=== PATIENT | male | born 1950 | race Two or more races ===

== ENCOUNTER 2018-07-17 21:50 | Emergency (ER) | payer OTHER ==
[~2018-07-17] VITALS: Ht 175.3 cm; Wt 74.8 kg
[2018-07-17 21:56] VITALS: BP 174/86
[2018-07-17 22:19] LABS: Basophils # (auto) 0 uL; Basophils % (auto) 0.4 % (0.0-2.0); Eosinophils # (auto) 0.1 uL; Eosinophils % (auto) 1.2 % (0.0-7.0); Hematocrit 43.2 % (41.0-53.0); Hemoglobin 14.5 g/dL (13.5-17.5); Lymphocytes # (auto) 3.3 uL; Lymphocytes % (auto) 40.5 % (10.0-50.0); Mean Corpuscular Hemoglobin 32.4 pg (28.0-32.0); Mean Corpuscular Hgb Conc. 33.5 g/dL (32.0-36.0); Mean Corpuscular Volume 96.7 fL (80.0-100.0); Monocytes # (auto) 0.6 uL; Monocytes % (auto) 7.2 % (0.0-12.0); Neutrophils # (auto) 4.1 uL; Neutrophils % (auto) 50.7 % (37.0-80.0); Nucleated Red Blood Cells % 0.2 %; Platelet Count (auto) 225 10^3/uL (140-450); Red Blood Cells 4.47 10^6/uL (4.5-5.90); Red Cell Distribution Width 13.9 % (11.8-14.3); White Blood Cell 8.2 10^3/uL (4.4-10.8)
[2018-07-17 22:35] LABS: INR 0.96 (0.9-1.15); Prothrombin Time 10.3 sec (9.27-12.13)
[2018-07-17 22:38] LABS: Albumin 4.1 g/dL (3.4-5.0); BUN/Creatinine Ratio 19.2; Calcium 8.9 mg/dL (8.5-10.1); Magnesium 2.4 mg/dL (1.6-2.6); Potassium 3.7 mmol/L (3.5-5.1)
[2018-07-17 22:43] LABS: Bilirubin, Total 0.2 mg/dL (0.2-1.0); Total Protein 7.5 g/dL (6.4-8.2)
== END 2018-07-18 02:34 | disposition left against medical advice (07) ==
LOC: ER 22:01
DX: R07.9 Chest pain, unspecified (principal); M79.642 Pain in left hand; Z53.21 Procedure and treatment not carried out due to patient leaving prior to being seen by health care provider
CPT/HCPCS: 36415; 71046; 80053; 83735; 83880; 84443; 84484; 85025; 85610; 85730; 99281; J7030

== ENCOUNTER → 2020-04-19 21:36 | Emergency (ER) | payer OTHER ==
[~2020-04-19 21:36] MED LIST: ASPI325T4 PO; CLOP75TA70 PO; FURO20TA3 PO; FURO40TA4 PO; LATA0.0019 EACHEYE; LEVO-28 PO; LOSA-69 PO; MET25T PO; METF-370 PO; METO-158 PO; POTA10TA51 PO; SIMV-8 PO
== END | disposition left against medical advice (07) ==
LOC: ER 21:36
DX: R07.89 Other chest pain (principal); Z53.21 Procedure and treatment not carried out due to patient leaving prior to being seen by health care provider
CPT/HCPCS: 93005

== ENCOUNTER 2020-07-23 20:21 | Inpatient (IN) | payer OTHER ==
[~2020-07-23] VITALS: Ht 165.1 cm; Wt 83.2 kg
[2020-07-23 21:14] LABS: Basophils # (auto) 0 10 ^3/uL (0-0.2); Basophils % (auto) 0.5 % (0.0-2.0); Eosinophils # (auto) 0.1 10 ^3/uL (0-0.8); Eosinophils % (auto) 1.1 % (0.0-7.0); Hematocrit 40.1 % (41.0-53.0); Hemoglobin 13.9 g/dL (13.5-17.5); Lymphocytes # (auto) 3.4 10 ^3/uL (0.4-5.4); Lymphocytes % (auto) 39.9 % (10.0-50.0); Mean Corpuscular Hemoglobin 33.1 pg (28.0-32.0); Mean Corpuscular Hgb Conc. 34.7 g/dL (32.0-36.0); Mean Corpuscular Volume 95.5 fL (80.0-100.0); Monocytes # (auto) 0.5 10 ^3/uL (0-1.3); Monocytes % (auto) 6.3 % (0.0-12.0); Neutrophils # (auto) 4.4 10 ^3/uL (1.6-8.6); Neutrophils % (auto) 52.2 % (37.0-80.0); Nucleated Red Blood Cells % 0.1 %; Platelet Count (auto) 193 10^3/uL (140-450); Red Cell Distribution Width 13.7 % (11.8-14.3); White Blood Cell 8.5 10^3/uL (4.4-10.8)
[2020-07-23] MEDS ORDERED: ASPirin-EC 325mg tab PO ONE (21:30)
[2020-07-23 21:39] LABS: Albumin 3.9 g/dL (3.4-5.0); Calcium 8.6 mg/dL (8.5-10.1); Magnesium 2.5 mg/dL (1.6-2.6); Potassium 3.8 mmol/L (3.5-5.1)
[2020-07-23 21:46] LABS: Bilirubin, Total 0.2 mg/dL (0.2-1.0); Total Protein 7.3 g/dL (6.4-8.2)
[2020-07-23 22:15] LABS: BUN/Creatinine Ratio 30.1
[2020-07-23 22:46] LABS: INR 0.97 (0.9-1.15); Partial Thromboplastin Time 24.5 sec (23.0-31.2)
[2020-07-24] VITALS (27 sets, daily range): BP systolic 81–127; BP diastolic 47–82
[2020-07-24] MEDS ORDERED: ONDANSETRON HCL 4 MG/2 ML VIAL IV PRN (00:45)
[2020-07-24] MEDS: SODIUM CHLORIDE 0.9% 1,000 ML IV SCH ×2 (00:45→16:16)
[2020-07-24] MEDS ORDERED: ENOXAPARIN SOD 100 MG/1 ML SYRINGE SC ONE (00:45)
[2020-07-24] MEDS ORDERED: NITROGLYCERIN 0.4 MG SL TAB SL PRN (00:45)
[2020-07-24] MEDS ORDERED: DEXTROSE (50%) 50ML SYRG IV PRN (00:45)
[2020-07-24] MEDS: MORPHINE SULF INJ 2 MG/ML SYRINGE 1ML IV PRN ×3 (05:29→20:56)
[2020-07-24] MEDS: ACCU-CHEK COMFORT CURVE STRIP VI SCH ×3 (06:00→18:31)
[2020-07-24] MEDS: InsuLIN REG 1unit/0.01ml Soln (100units/ml) SC SCH ×3 (06:00→18:00)
[2020-07-24 09:28] LABS: Urine Bacteria NONE SEEN /hpf (None Seen); Urine Blood Negative /uL (Negative); Urine Mucus FEW (None Seen); Urine Specific Gravity 1.024 (1.001-1.035); Urine WBC 1 /hpf (0 - 3)
[2020-07-24] MEDS ORDERED: LOSARTAN POTASSIUM 50 MG TAB PO SCH (10:00)
[2020-07-24] MEDS ORDERED: FAMOTIDINE 20 MG TAB PO SCH (10:00)
[2020-07-24] MEDS ORDERED: ASPirin 81 mg TAB PO SCH (10:00)
[2020-07-24] MEDS ORDERED: ENOXAPARIN SOD 80 MG/0.8ML SYRINGE SC SCH (10:00)
[2020-07-24] MEDS ORDERED: ATENOLOL 50 MG TAB PO SCH (10:00)
[2020-07-24] MEDS ORDERED: HEPARIN SODIUM (PORCINE) 5000 UNITS/ML 1ML VIAL ONE (14:05)
[2020-07-24] MEDS ORDERED: fentaNYL CITRATE 100 MCG/2 ML VL ONE (14:05)
[2020-07-24] MEDS ORDERED: VERAPAMIL 2.5MG/ML INJ 2ML VIAL IV ONE (14:05)
[2020-07-24] MEDS ORDERED: ANGIOMAX 250 MG VIAL IV ONE (14:05)
[2020-07-24] MEDS ORDERED: IODIXANOL 320MG/ML 100ML BTL IV ONE (14:06)
[2020-07-24] MEDS ORDERED: MIDAZOLAM HCL 1MG/1ML-2 ML VIAL ONE (14:06)
[2020-07-24] MEDS ORDERED: SODIUM CHL 0.9% 0 ML ONE (14:06)
[2020-07-24] MEDS ORDERED: LIDOCAINE 2%HCL (LOCAL ANESTH.) INJ 20ML MDV ONE (14:06)
[2020-07-24] MEDS ORDERED: guaiFENesin-DM 100/10mg/5ml SYR PO PRN (17:00)
[2020-07-24] MEDS ORDERED: NOREPINEPHRINE 8 MG/250ML KIT 250 ML IV SCH (17:00)
[2020-07-24] MEDS ORDERED: ALBUTEROL SULF 2.5 MG/0.5ML(0.5%) NEB SOLN NEB PRN (17:00)
[2020-07-24] MEDS ORDERED: ATORVASTATIN 20 MG TAB PO SCH (22:00)
== END 2020-07-24 21:10 | disposition short-term general hospital (02) | DRG 280 ==
LOC: ER 20:21 → EDBD 20:21 → TELE 20:22 → DOU IN ICU 07-24 03:57
PROVIDERS: ADMIT Nurse Practitioner; ATTEND Internal Medicine
PROC: 4A023N7 Measurement of Cardiac Sampling and Pressure, Left Heart, Percutaneous Approach (ICD-10-PCS; principal; 2020-07-24)
PROC: B2111ZZ Fluoroscopy of Multiple Coronary Arteries using Low Osmolar Contrast (ICD-10-PCS; 2020-07-24)
DX: I21.4 Non-ST elevation (NSTEMI) myocardial infarction (principal); I50.21 Acute systolic (congestive) heart failure; J96.01 Acute respiratory failure with hypoxia; I35.0 Nonrheumatic aortic (valve) stenosis; E11.9 Type 2 diabetes mellitus without complications; E78.5 Hyperlipidemia, unspecified; Z20.822 Contact with and (suspected) exposure to COVID-19; Z88.0 Allergy status to penicillin; I48.91 Unspecified atrial fibrillation; I11.0 Hypertensive heart disease with heart failure
CPT/HCPCS: 36415; 71045; 80053; 81001; 82962; 83735; 83880; 84484; 85025; 85610; 85730; 87081; 87426; 93005; 93306; 93458; 96360; 99152; G0378; J2250; Q9967

== ENCOUNTER 2020-08-01 19:15 | Inpatient (IN) | payer OTHER ==
[~2020-08-01] VITALS: Ht 175.3 cm; Wt 80.3 kg
[2020-08-01 21:16] LABS: Basophils # (auto) 0 10 ^3/uL (0-0.2); Basophils % (auto) 0.2 % (0.0-2.0); Eosinophils # (auto) 0.1 10 ^3/uL (0-0.8); Eosinophils % (auto) 0.3 % (0.0-7.0); Hematocrit 32.3 % (41.0-53.0); Lymphocytes # (auto) 2.5 10 ^3/uL (0.4-5.4); Lymphocytes % (auto) 13.8 % (10.0-50.0); Mean Corpuscular Hemoglobin 32.2 pg (28.0-32.0); Mean Corpuscular Volume 94.9 fL (80.0-100.0); Monocytes # (auto) 1.8 10 ^3/uL (0-1.3); Monocytes % (auto) 9.6 % (0.0-12.0); Neutrophils # (auto) 13.8 10 ^3/uL (1.6-8.6); Neutrophils % (auto) 76.1 % (37.0-80.0); Nucleated Red Blood Cells % 0.1 %; Platelet Count (auto) 161 10^3/uL (140-450); Red Cell Distribution Width 13.5 % (11.8-14.3); White Blood Cell 18.2 10^3/uL (4.4-10.8)
[2020-08-01 21:35] LABS: Albumin 2.7 g/dL (3.4-5.0); BUN/Creatinine Ratio 28.9; Calcium 7.7 mg/dL (8.5-10.1); Magnesium 2.2 mg/dL (1.6-2.6); Potassium 3.9 mmol/L (3.5-5.1)
[2020-08-01 21:41] LABS: Total Protein 6.3 g/dL (6.4-8.2)
[2020-08-01 21:43] LABS: INR 1.15 (0.9-1.15)
[2020-08-01 23:10] LABS: Urine Bacteria FEW /hpf (None Seen); Urine Blood Negative /uL (Negative); Urine Hyaline Cast FEW /lpf (0 - 2); Urine Mucus FEW (None Seen); Urine Specific Gravity 1.021 (1.001-1.035); Urine WBC 8 /hpf (0 - 3)
[2020-08-02] MEDS ORDERED: IOHEXOL 350 MG/ML 100ML IJ ONE (00:41)
[2020-08-02] MEDS ORDERED: ASPirin 325 MG TAB PO ONE (01:15)
[2020-08-02] MEDS ORDERED: cefTRIAXone 1GM/50ML D5W 50 ML IV ONE (01:30)
[2020-08-02] MEDS ORDERED: AZITHROMYCIN 500MG/ 250ML 250 ML IV ONE (01:30)
[2020-08-02] MEDS ORDERED: DOCUSATE SOD 100 MG CAP PO PRN (05:30)
[2020-08-02] MEDS ORDERED: HYDROcodone-ACET 5/325MG TAB PO PRN (05:30)
[2020-08-02] MEDS ORDERED: NITROGLYCERIN 0.4 MG SL TAB SL PRN (05:30)
[2020-08-02] MEDS ORDERED: MORPHINE SULF INJ 2 MG/ML SYRINGE 1ML IV PRN (05:30)
[2020-08-02] MEDS ORDERED: ONDANSETRON HCL 4 MG/2 ML VIAL IV PRN (05:30)
[2020-08-02] MEDS ORDERED: DEXTROSE (50%) 50ML SYRG IV PRN (05:30)
[2020-08-02] MEDS ORDERED: VANCOMYCIN PER PHARMACY 0 MG IV SCH (05:30)
[2020-08-02] MEDS ORDERED: ACETAMINOPHEN 325 MG TAB PO PRN (05:30)
[2020-08-02] MEDS ORDERED: MORPHINE SULFATE 4 MG/ML SYR/VIAL IV PRN (05:30)
[2020-08-02] MEDS ORDERED: ALBUMIN 25% 50 ML IV ONE (05:45)
[2020-08-02] MEDS: SODIUM CHLOR 0.9% PF (SALINE LOCK) 10ML VIAL/SYR IV SCH ×3 (06:08→22:00)
[2020-08-02] MEDS ORDERED: VANCOMYCIN 1GM/250ML 250 ML IV ONE (06:15)
[2020-08-02] MEDS: InsuLIN REG 1unit/0.01ml Soln (100units/ml) SC SCH ×3 (07:56→17:10)
[2020-08-02] MEDS: ACCU-CHEK COMFORT CURVE STRIP VI SCH ×4 (07:57→22:00)
[2020-08-02 08:37] LABS: Basophils # (auto) 0.1 10 ^3/uL (0-0.2); Basophils % (auto) 0.3 % (0.0-2.0); Eosinophils # (auto) 0 10 ^3/uL (0-0.8); Eosinophils % (auto) 0.2 % (0.0-7.0); Hematocrit 31.8 % (41.0-53.0); Hemoglobin 10.8 g/dL (13.5-17.5); Lymphocytes # (auto) 2.7 10 ^3/uL (0.4-5.4); Lymphocytes % (auto) 14.8 % (10.0-50.0); Mean Corpuscular Hemoglobin 32.2 pg (28.0-32.0); Mean Corpuscular Hgb Conc. 33.9 g/dL (32.0-36.0); Monocytes # (auto) 1.7 10 ^3/uL (0-1.3); Monocytes % (auto) 9.2 % (0.0-12.0); Neutrophils # (auto) 13.7 10 ^3/uL (1.6-8.6); Neutrophils % (auto) 75.5 % (37.0-80.0); Platelet Count (auto) 168 10^3/uL (140-450); Red Blood Cells 3.35 10^6/uL (4.5-5.90); Red Cell Distribution Width 13.4 % (11.8-14.3); White Blood Cell 18.1 10^3/uL (4.4-10.8)
[2020-08-02 08:50] LABS: Calcium 8.3 mg/dL (8.5-10.1); Potassium 3.8 mmol/L (3.5-5.1)
[2020-08-02 08:53] LABS: BUN/Creatinine Ratio 25.7; Bilirubin, Total 1.1 mg/dL (0.2-1.0); Total Protein 6.3 g/dL (6.4-8.2)
[2020-08-02 09:00] VITALS: BP 122/70
[2020-08-02] MEDS ORDERED: ZINC SULFATE 220mg CAP or TAB PO SCH (10:00)
[2020-08-02] MEDS ORDERED: ASCORBIC ACID 500 MG TAB PO SCH (10:00)
[2020-08-02] MEDS: ASPirin 81 mg TAB PO SCH (11:50)
[2020-08-02] MEDS: FAMOTIDINE (10MG/ML) 2ML VL IV SCH ×2 (11:50→22:40)
[2020-08-02] MEDS: MULTIPLE VITAMIN TAB PO SCH (11:51)
[2020-08-02] MEDS: HEPARIN SODIUM (PORCINE) 5000 UNITS/ML 1ML VIAL SC SCH ×2 (11:53→23:01)
[2020-08-02 12:04] VITALS: BP 122/70
[2020-08-02 12:46] VITALS: BP 105/68
[2020-08-02] MEDS ORDERED: SOD CHL 0.45% 1,000 ML IV ONE (14:15)
[2020-08-02] MEDS ORDERED: LEVO-28 PO (14:43)
[2020-08-02] MEDS ORDERED: METO-158 PO (14:43)
[2020-08-02] MEDS ORDERED: SIMV-8 PO (14:43)
[2020-08-02] MEDS ORDERED: ASPI325T4 PO (14:43)
[2020-08-02] MEDS ORDERED: FURO20TA3 PO (14:43)
[2020-08-02] MEDS ORDERED: LATA0.0019 EACHEYE (14:43)
[2020-08-02] MEDS ORDERED: CLOP75TA70 PO (14:43)
[2020-08-02] MEDS ORDERED: LOSA-69 PO (14:43)
[2020-08-02] MEDS ORDERED: METF-370 PO (14:43)
[2020-08-02] MEDS: CLOPIDOGREL BISULFATE 75 MG TAB PO SCH (16:48)
[2020-08-02 17:00] VITALS: BP 114/68
[2020-08-02 22:00] VITALS: BP 111/72
[2020-08-02] MEDS ORDERED: InsuLIN REG 1unit/0.01ml Soln (100units/ml) SC SCH (22:00)
[2020-08-02] MEDS ORDERED: ATORVASTATIN 20 MG TAB PO SCH (22:00)
[2020-08-02] MEDS ORDERED: HEPARIN SODIUM (PORCINE) 5000 UNITS/ML 1ML VIAL ONE (22:53)
[2020-08-03] MEDS ORDERED: VANCOMYCIN 1GM/250ML 250 ML IV SCH
[2020-08-03 05:00] VITALS: BP 121/72
[2020-08-03] MEDS: SODIUM CHLOR 0.9% PF (SALINE LOCK) 10ML VIAL/SYR IV SCH ×2 (05:28→14:32)
[2020-08-03] MEDS: InsuLIN REG 1unit/0.01ml Soln (100units/ml) SC SCH ×2 (05:29→11:51)
[2020-08-03] MEDS: ACCU-CHEK COMFORT CURVE STRIP VI SCH ×2 (05:29→11:49)
[2020-08-03 06:34] LABS: Basophils # (auto) 0 10 ^3/uL (0-0.2); Basophils % (auto) 0.2 % (0.0-2.0); Eosinophils # (auto) 0.1 10 ^3/uL (0-0.8); Eosinophils % (auto) 0.3 % (0.0-7.0); Hematocrit 32.1 % (41.0-53.0); Lymphocytes # (auto) 2.5 10 ^3/uL (0.4-5.4); Lymphocytes % (auto) 14.5 % (10.0-50.0); Mean Corpuscular Hemoglobin 32.6 pg (28.0-32.0); Mean Corpuscular Hgb Conc. 34.5 g/dL (32.0-36.0); Mean Corpuscular Volume 94.7 fL (80.0-100.0); Monocytes # (auto) 1.4 10 ^3/uL (0-1.3); Neutrophils # (auto) 13.2 10 ^3/uL (1.6-8.6); Nucleated Red Blood Cells % 0.1 %; Platelet Count (auto) 198 10^3/uL (140-450); Red Blood Cells 3.39 10^6/uL (4.5-5.90); Red Cell Distribution Width 13.1 % (11.8-14.3); White Blood Cell 17.1 10^3/uL (4.4-10.8)
[2020-08-03 06:59] LABS: Potassium 3.8 mmol/L (3.5-5.1)
[2020-08-03 07:23] LABS: Albumin 2.8 g/dL (3.4-5.0); BUN/Creatinine Ratio 19.2; Calcium 8.4 mg/dL (8.5-10.1); Total Protein 6.2 g/dL (6.4-8.2)
[2020-08-03 09:00] VITALS: BP 101/61
[2020-08-03] MEDS: ASPirin 81 mg TAB PO SCH (09:50)
[2020-08-03] MEDS: CLOPIDOGREL BISULFATE 75 MG TAB PO SCH (09:50)
[2020-08-03] MEDS: HEPARIN SODIUM (PORCINE) 5000 UNITS/ML 1ML VIAL SC SCH (09:51)
[2020-08-03] MEDS: FAMOTIDINE (10MG/ML) 2ML VL IV SCH (09:53)
[2020-08-03] MEDS: MULTIPLE VITAMIN TAB PO SCH (09:53)
[2020-08-03] MEDS ORDERED: levoFLOXacin 500MG 100 ML IV SCH (10:00)
[2020-08-03 12:00] VITALS: BP 101/61
[2020-08-03 13:00] VITALS: BP 95/59
[2020-08-03 14:00] VITALS: BP 101/64
== END 2020-08-03 14:44 | disposition home or self-care (01) | DRG 312 ==
LOC: ER 19:15 → EDBD 19:15 → TELE 08-02 05:21 → TELE-EAST 08-02 08:51
PROVIDERS: ADMIT Nurse Practitioner Family; ATTEND Hospitalist
DX: I95.2 Hypotension due to drugs (principal); E87.1 Hypo-osmolality and hyponatremia; E44.0 Moderate protein-calorie malnutrition; E11.65 Type 2 diabetes mellitus with hyperglycemia; E88.09 Other disorders of plasma-protein metabolism, not elsewhere classified; Z20.822 Contact with and (suspected) exposure to COVID-19; E11.22 Type 2 diabetes mellitus with diabetic chronic kidney disease; E78.00 Pure hypercholesterolemia, unspecified; I12.9 Hypertensive chronic kidney disease with stage 1 through stage 4 chronic kidney disease, or unspecified chronic kidney disease; I25.10 Atherosclerotic heart disease of native coronary artery without angina pectoris; I70.0 Atherosclerosis of aorta; K76.0 Fatty (change of) liver, not elsewhere classified; E78.5 Hyperlipidemia, unspecified; I25.5 Ischemic cardiomyopathy; I48.91 Unspecified atrial fibrillation; T46.5X5A Adverse effect of other antihypertensive drugs, initial encounter; N18.9 Chronic kidney disease, unspecified; I25.2 Old myocardial infarction; Z79.02 Long term (current) use of antithrombotics/antiplatelets; Z95.2 Presence of prosthetic heart valve; Z88.0 Allergy status to penicillin; Z98.52 Vasectomy status
CPT/HCPCS: 36415; 71045; 71275; 80053; 80061; 81001; 82962; 83036; 83605; 83735; 83880; 84484; 85025; 85610; 87040; 87081; 87426; 93005; 93306; 96365; 96367; 96368; G0378; J0696; J1815; J1956; J3490

== ENCOUNTER 2020-09-11 21:42 | Inpatient (IN) | payer OTHER ==
[~2020-09-11] VITALS: Ht 175.3 cm; Wt 85.4 kg
[~2020-09-11 21:42] MED LIST changes: -FURO20TA3 PO; -FURO40TA4 PO; -LOSA-69 PO; -MET25T PO; -METO-158 PO; -POTA10TA51 PO
[2020-09-11 22:15] LABS: Basophils # (auto) 0 10 ^3/uL (0-0.2); Basophils % (auto) 0.6 % (0.0-2.0); Eosinophils # (auto) 0.1 10 ^3/uL (0-0.8); Eosinophils % (auto) 1.2 % (0.0-7.0); Hematocrit 39.4 % (41.0-53.0); Hemoglobin 13.7 g/dL (13.5-17.5); Lymphocytes # (auto) 3.1 10 ^3/uL (0.4-5.4); Lymphocytes % (auto) 43.2 % (10.0-50.0); Mean Corpuscular Hemoglobin 32.9 pg (28.0-32.0); Mean Corpuscular Hgb Conc. 34.8 g/dL (32.0-36.0); Mean Corpuscular Volume 94.7 fL (80.0-100.0); Monocytes # (auto) 0.7 10 ^3/uL (0-1.3); Monocytes % (auto) 10.1 % (0.0-12.0); Neutrophils # (auto) 3.2 10 ^3/uL (1.6-8.6); Neutrophils % (auto) 44.9 % (37.0-80.0); Nucleated Red Blood Cells % 0.2 %; Red Blood Cells 4.16 10^6/uL (4.5-5.90); Red Cell Distribution Width 14.1 % (11.8-14.3); White Blood Cell 7.1 10^3/uL (4.4-10.8)
[2020-09-11 22:29] LABS: Albumin 3.5 g/dL (3.4-5.0); Calcium 8.8 mg/dL (8.5-10.1); Potassium 3.9 mmol/L (3.5-5.1)
[2020-09-11 22:31] LABS: BUN/Creatinine Ratio 18.6
[2020-09-11 22:36] LABS: Bilirubin, Total 0.2 mg/dL (0.2-1.0)
[2020-09-11 22:45] LABS: INR 0.97 (0.9-1.15); Partial Thromboplastin Time 23.2 sec (23.0-31.2)
[2020-09-12] MEDS ORDERED: SODIUM CHLORIDE IV ONE (01:00)
[2020-09-12] MEDS ORDERED: SODIUM BICARB IV ONE (01:00)
[2020-09-12] MEDS ORDERED: SODIUM BICARBONATE 8.4% INJ 50ML SYRINGE ONE (01:07)
[2020-09-12] MEDS ORDERED: SODIUM CHLORIDE 0.9% 1,000 ML IV ONE (01:30)
[2020-09-12] MEDS ORDERED: NITROGLYCERIN 0.4 MG SL TAB SL PRN (05:30)
[2020-09-12] MEDS ORDERED: ONDANSETRON HCL 4 MG/2 ML VIAL IV PRN (05:30)
[2020-09-12] MEDS ORDERED: ENOXAPARIN SOD 100 MG/1 ML SYRINGE SC ONE (05:30)
[2020-09-12] MEDS ORDERED: MORPHINE SULFATE INJECTION 2 MG/ML SYRG IV PRN (05:30)
[2020-09-12] MEDS ORDERED: DEXTROSE (50%) 50ML SYRG IV PRN (05:30)
[2020-09-12] MEDS: ACCU-CHEK COMFORT CURVE STRIP VI SCH ×3 (06:00→18:11)
[2020-09-12] MEDS: InsuLIN REG 1unit/0.01ml Soln (100units/ml) SC SCH ×3 (06:00→18:12)
[2020-09-12] MEDS: SODIUM CHLORIDE 0.9% 1,000 ML IV SCH ×2 (06:23→18:40)
[2020-09-12 09:03] VITALS: BP 145/85
[2020-09-12] MEDS: CLOPIDOGREL BISULFATE 75 MG TAB PO SCH (09:25)
[2020-09-12] MEDS: ASPirin 81 mg TAB PO SCH (09:25)
[2020-09-12] MEDS: FAMOTIDINE 20 MG TAB PO SCH ×2 (09:25→21:38)
[2020-09-12 13:00] VITALS: BP 137/97
[2020-09-12] MEDS: METOPROLOL SUCCINATE XL 50 MG TAB PO SCH (16:31)
[2020-09-12 17:04] VITALS: BP 126/84
[2020-09-12] MEDS: ENOXAPARIN SOD 80 MG/0.8ML SYRINGE SC SCH (21:39)
[2020-09-12 22:00] VITALS: BP_SYST 129; BP_SYST 98; BP_DIAS 52; BP_DIAS 77
[2020-09-12] MEDS ORDERED: ATORVASTATIN 20 MG TAB PO SCH (22:00)
[2020-09-13] MEDS: ACCU-CHEK COMFORT CURVE STRIP VI SCH ×4 (00:05→17:40)
[2020-09-13 05:00] VITALS: BP 134/89
[2020-09-13] MEDS: InsuLIN REG 1unit/0.01ml Soln (100units/ml) SC SCH ×4 (06:00→17:40)
[2020-09-13 06:47] LABS: Basophils # (auto) 0.1 10 ^3/uL (0-0.2); Basophils % (auto) 0.7 % (0.0-2.0); Eosinophils # (auto) 0.1 10 ^3/uL (0-0.8); Eosinophils % (auto) 1.3 % (0.0-7.0); Hematocrit 37.4 % (41.0-53.0); Hemoglobin 12.9 g/dL (13.5-17.5); Lymphocytes # (auto) 2.4 10 ^3/uL (0.4-5.4); Lymphocytes % (auto) 29.2 % (10.0-50.0); Mean Corpuscular Hemoglobin 32.6 pg (28.0-32.0); Mean Corpuscular Hgb Conc. 34.6 g/dL (32.0-36.0); Mean Corpuscular Volume 94.2 fL (80.0-100.0); Monocytes # (auto) 0.6 10 ^3/uL (0-1.3); Monocytes % (auto) 6.9 % (0.0-12.0); Neutrophils % (auto) 61.9 % (37.0-80.0); Nucleated Red Blood Cells % 0.1 %; Red Blood Cells 3.97 10^6/uL (4.5-5.90); Red Cell Distribution Width 14.2 % (11.8-14.3); White Blood Cell 8.1 10^3/uL (4.4-10.8)
[2020-09-13 07:01] LABS: Albumin 3.1 g/dL (3.4-5.0); Calcium 8.6 mg/dL (8.5-10.1); Potassium 4.1 mmol/L (3.5-5.1)
[2020-09-13 07:05] LABS: BUN/Creatinine Ratio 15.1; Bilirubin, Total 0.7 mg/dL (0.2-1.0); Total Protein 6.3 g/dL (6.4-8.2)
[2020-09-13] MEDS: SODIUM CHLORIDE 0.9% 1,000 ML IV SCH ×2 (07:30→08:10)
[2020-09-13 09:00] VITALS: BP 142/78
[2020-09-13] MEDS: CLOPIDOGREL BISULFATE 75 MG TAB PO SCH (10:35)
[2020-09-13] MEDS: FAMOTIDINE 20 MG TAB PO SCH (10:37)
[2020-09-13] MEDS: ASPirin 81 mg TAB PO SCH (10:38)
[2020-09-13] MEDS: METOPROLOL SUCCINATE XL 50 MG TAB PO SCH (10:38)
[2020-09-13] MEDS: ENOXAPARIN SOD 80 MG/0.8ML SYRINGE SC SCH (10:39)
[2020-09-13 13:00] VITALS: BP 126/84
[2020-09-13 17:00] VITALS: BP 147/87
== END 2020-09-13 18:15 | disposition home or self-care (01) | DRG 281 ==
LOC: ER 21:51 → TELE 09-12 05:30 → TELE-EAST 09-12 09:10
PROVIDERS: ADMIT Nurse Practitioner; ATTEND Internal Medicine
DX: I21.4 Non-ST elevation (NSTEMI) myocardial infarction (principal); I47.1 Supraventricular tachycardia; E11.9 Type 2 diabetes mellitus without complications; E78.5 Hyperlipidemia, unspecified; I11.0 Hypertensive heart disease with heart failure; Z20.822 Contact with and (suspected) exposure to COVID-19; I50.9 Heart failure, unspecified; Z83.3 Family history of diabetes mellitus; Z95.2 Presence of prosthetic heart valve; Z88.0 Allergy status to penicillin
CPT/HCPCS: 36415; 71045; 80053; 82962; 83880; 84484; 85025; 85610; 85730; 87081; 87426; 93005; 93306; 96360; 96361; 96372; 99291; G0378; J1815

== ENCOUNTER 2020-11-20 16:51 | Inpatient (IN) | payer OTHER ==
[~2020-11-20] VITALS: Ht 175.3 cm; Wt 79.4 kg
[2020-11-20] MEDS ORDERED: ADENOSINE 6 MG/2 ML INJ IV ONE ×2 (17:44→17:47)
[2020-11-20 18:55] LABS: Basophils # (auto) 0 10 ^3/uL (0-0.2); Basophils % (auto) 0.4 % (0.0-2.0); Eosinophils # (auto) 0 10 ^3/uL (0-0.8); Eosinophils % (auto) 0.5 % (0.0-7.0); Hematocrit 42.6 % (41.0-53.0); Hemoglobin 14.5 g/dL (13.5-17.5); Lymphocytes # (auto) 2.7 10 ^3/uL (0.4-5.4); Lymphocytes % (auto) 29.4 % (10.0-50.0); Mean Corpuscular Hemoglobin 31.5 pg (28.0-32.0); Mean Corpuscular Hgb Conc. 34.1 g/dL (32.0-36.0); Mean Corpuscular Volume 92.6 fL (80.0-100.0); Monocytes # (auto) 0.8 10 ^3/uL (0-1.3); Monocytes % (auto) 8.4 % (0.0-12.0); Neutrophils # (auto) 5.7 10 ^3/uL (1.6-8.6); Neutrophils % (auto) 61.3 % (37.0-80.0); Nucleated Red Blood Cells % 0.1 %; Red Cell Distribution Width 14.8 % (11.8-14.3); White Blood Cell 9.3 10^3/uL (4.4-10.8)
[2020-11-20 19:06] LABS: Potassium 3.9 mmol/L (3.5-5.1)
[2020-11-20 19:15] LABS: Albumin 3.7 g/dL (3.4-5.0); Bilirubin, Total 0.4 mg/dL (0.2-1.0); Calcium 9.3 mg/dL (8.5-10.1); Magnesium 2.3 mg/dL (1.6-2.6); Total Protein 7.5 g/dL (6.4-8.2)
[2020-11-21] MEDS ORDERED: ASPirin 325 MG TAB PO ONE (03:45)
[2020-11-21] MEDS ORDERED: ENOXAPARIN SOD 100 MG/1 ML SYRINGE SC ONE (03:45)
[2020-11-21] MEDS ORDERED: NITROGLYCERIN 0.4 MG SL TAB SL PRN (06:00)
[2020-11-21] MEDS ORDERED: LORazepam 0.5 MG TAB PO PRN (06:00)
[2020-11-21] MEDS ORDERED: ONDANSETRON HCL 4 MG/2 ML VIAL IV PRN (06:00)
[2020-11-21] MEDS ORDERED: METOPROLOL TARTRATE 1MG/1ML-5ML VIAL IV ONE (06:00)
[2020-11-21] MEDS ORDERED: ALUM & MAG HYDROX-SIMETH LIQ(MAALOX) 30 ML PO ONE (06:00)
[2020-11-21] MEDS ORDERED: ENOXAPARIN SOD 30 MG/0.3 ML SYRINGE IV ONE (06:00)
[2020-11-21] MEDS ORDERED: MORPHINE SULF INJ 2 MG/ML SYRINGE 1ML IV PRN (06:00)
[2020-11-21 06:24] LABS: Cholesterol 182 mg/dL (< 200)
[2020-11-21 06:27] LABS: HDL Cholesterol 37 mg/dL (40-59); LDL Cholesterol 115 mg/dL (< 100); Triglycerides 167 mg/dL (< 150)
[2020-11-21] MEDS: SODIUM CHLORIDE 0.9% 1,000 ML IV SCH ×2 (06:32→23:35)
[2020-11-21] MEDS: METOPROLOL TARTRATE 25 MG TAB PO SCH ×2 (10:00→23:03)
[2020-11-21] MEDS: CLOPIDOGREL BISULFATE 75 MG TAB PO SCH (10:00)
[2020-11-21] MEDS: ASPirin 81 mg TAB PO SCH (10:00)
[2020-11-21] MEDS: DOCUSATE SOD 100 MG CAP PO SCH (10:00)
[2020-11-21] MEDS: LISINOPRIL 10 MG TAB PO SCH (10:00)
[2020-11-21 11:30] LABS: BUN/Creatinine Ratio 29.8; Calcium 8.7 mg/dL (8.5-10.1); Magnesium 2.6 mg/dL (1.6-2.6); Potassium 4.3 mmol/L (3.5-5.1)
[2020-11-21 12:32] LABS: INR 1.08 (0.9-1.15); Partial Thromboplastin Time 22.5 sec (23.6-33.0)
[2020-11-21] MEDS ORDERED: LIDOCAINE 2%HCL (LOCAL ANESTH.) INJ 20ML MDV ONE (14:10)
[2020-11-21] MEDS ORDERED: IODIXANOL 320MG/ML 100ML BTL IV ONE (14:10)
[2020-11-21] MEDS ORDERED: fentaNYL CITRATE 100 MCG/2 ML VL ONE (14:20)
[2020-11-21] MEDS ORDERED: ANGIOMAX 250 MG VIAL IV ONE (14:20)
[2020-11-21] MEDS ORDERED: MIDAZOLAM HCL 2MG/2ML 2ml VIAL (1mg/ml) ONE (14:20)
[2020-11-21] MEDS ORDERED: VERAPAMIL 2.5MG/ML INJ 2ML VIAL IV ONE (14:20)
[2020-11-21] MEDS ORDERED: SODIUM CHL 0.9% 50 ML ONE (14:21)
[2020-11-21] MEDS ORDERED: HEPARIN SODIUM (PORCINE) 5000 UNITS/ML 1ML VIAL ONE (14:41)
[2020-11-21] MEDS ORDERED: MET25T PO (15:25)
[2020-11-21] MEDS ORDERED: ASPirin 81 mg TAB ONE (15:51)
[2020-11-21] MEDS ORDERED: CLOPIDOGREL BISULFATE 75 MG TAB ONE (15:51)
[2020-11-21 20:26] VITALS: BP 129/80
[2020-11-21 20:37] VITALS: BP 116/73
[2020-11-21] MEDS ORDERED: POTA10TA51 PO (21:08)
[2020-11-21] MEDS ORDERED: FURO40TA4 PO (21:08)
[2020-11-21 22:00] VITALS: BP 104/71
[2020-11-21] MEDS: ATORVASTATIN 20 MG TAB PO SCH (22:59)
[2020-11-22 05:00] VITALS: BP 118/85
[2020-11-22 05:58] LABS: Basophils # (auto) 0 10 ^3/uL (0-0.2); Basophils % (auto) 0.5 % (0.0-2.0); Eosinophils # (auto) 0.1 10 ^3/uL (0-0.8); Eosinophils % (auto) 0.9 % (0.0-7.0); Hematocrit 43.2 % (41.0-53.0); Hemoglobin 14.7 g/dL (13.5-17.5); Lymphocytes # (auto) 1.9 10 ^3/uL (0.4-5.4); Lymphocytes % (auto) 27.3 % (10.0-50.0); Mean Corpuscular Hgb Conc. 33.9 g/dL (32.0-36.0); Mean Corpuscular Volume 91.4 fL (80.0-100.0); Monocytes # (auto) 0.4 10 ^3/uL (0-1.3); Monocytes % (auto) 5.6 % (0.0-12.0); Neutrophils # (auto) 4.6 10 ^3/uL (1.6-8.6); Neutrophils % (auto) 65.7 % (37.0-80.0); Nucleated Red Blood Cells % 0.1 %; Red Blood Cells 4.73 10^6/uL (4.5-5.90); Red Cell Distribution Width 14.5 % (11.8-14.3)
[2020-11-22 06:27] LABS: BUN/Creatinine Ratio 29.5; Potassium 4.3 mmol/L (3.5-5.1)
[2020-11-22] MEDS: SODIUM CHLORIDE 0.9% 1,000 ML IV SCH ×2 (08:40→22:00)
[2020-11-22 09:00] VITALS: BP 110/74
[2020-11-22] MEDS: DOCUSATE SOD 100 MG CAP PO SCH (11:43)
[2020-11-22] MEDS: CLOPIDOGREL BISULFATE 75 MG TAB PO SCH (11:43)
[2020-11-22] MEDS: METOPROLOL TARTRATE 25 MG TAB PO SCH ×2 (11:44→21:59)
[2020-11-22] MEDS: LISINOPRIL 10 MG TAB PO SCH (11:44)
[2020-11-22] MEDS: ASPirin 81 mg TAB PO SCH (11:44)
[2020-11-22] MEDS: FUROSEMIDE 40 MG TAB PO SCH (11:46)
[2020-11-22 13:00] VITALS: BP 130/82
[2020-11-22 17:00] VITALS: BP 91/65
[2020-11-22] MEDS: ATORVASTATIN 20 MG TAB PO SCH (21:58)
[2020-11-22 22:00] VITALS: BP 108/71
[2020-11-22] MEDS: ENOXAPARIN SOD 80 MG/0.8ML SYRINGE SC SCH (22:00)
[2020-11-22] MEDS ORDERED: ADENOSINE 6 MG/2 ML INJ IV ONE (22:29)
[2020-11-23 05:00] VITALS: BP 108/72
[2020-11-23 08:00] VITALS: BP 106/71
[2020-11-23 09:00] VITALS: BP 106/71
[2020-11-23] MEDS: CLOPIDOGREL BISULFATE 75 MG TAB PO SCH (09:22)
[2020-11-23] MEDS: LISINOPRIL 10 MG TAB PO SCH (09:22)
[2020-11-23] MEDS: ASPirin 81 mg TAB PO SCH (09:22)
[2020-11-23] MEDS: ENOXAPARIN SOD 80 MG/0.8ML SYRINGE SC SCH (09:22)
[2020-11-23] MEDS: FUROSEMIDE 40 MG TAB PO SCH (09:23)
[2020-11-23] MEDS: METOPROLOL TARTRATE 25 MG TAB PO SCH (09:23)
[2020-11-23] MEDS: DOCUSATE SOD 100 MG CAP PO SCH (09:23)
== END 2020-11-23 10:19 | disposition short-term general hospital (02) | DRG 281 ==
LOC: ER 16:51 → TELE 11-21 05:46 → TELE-WESTW 11-21 16:56
PROVIDERS: ADMIT Hospitalist; ATTEND Internal Medicine
PROC: B211YZZ Fluoroscopy of Multiple Coronary Arteries using Other Contrast (ICD-10-PCS; principal; 2020-11-21)
PROC: 5A2204Z Restoration of Cardiac Rhythm, Single (ICD-10-PCS; 2020-11-21)
DX: T82.855A Stenosis of coronary artery stent, initial encounter (principal); I21.4 Non-ST elevation (NSTEMI) myocardial infarction; I47.1 Supraventricular tachycardia; N17.9 Acute kidney failure, unspecified; I50.9 Heart failure, unspecified; I11.0 Hypertensive heart disease with heart failure; I25.10 Atherosclerotic heart disease of native coronary artery without angina pectoris; E78.5 Hyperlipidemia, unspecified; E11.9 Type 2 diabetes mellitus without complications; Z20.822 Contact with and (suspected) exposure to COVID-19; Y83.1 Surgical operation with implant of artificial internal device as the cause of abnormal reaction of the patient, or of later complication, without mention of misadventure at the time of the procedure; Z83.3 Family history of diabetes mellitus; Y92.89 Other specified places as the place of occurrence of the external cause; Z82.49 Family history of ischemic heart disease and other diseases of the circulatory system; Z95.2 Presence of prosthetic heart valve; Z98.61 Coronary angioplasty status; Z88.0 Allergy status to penicillin
CPT/HCPCS: 36415; 71045; 80048; 80053; 80061; 83036; 83735; 84484; 85025; 85610; 85730; 87081; 87426; 92960; 93005; 93454; 96374; 96376; 99152; G0378; J0153; J2250; Q9967

== ENCOUNTER 2020-12-07 21:40 | Emergency (ER) | payer OTHER ==
[~2020-12-07] VITALS: Ht 175.3 cm; Wt 76.2 kg
[~2020-12-07 21:40] MED LIST changes: +FURO40TA4 PO; -LEVO-28 PO; +MET25T PO; +POTA10TA51 PO
[2020-12-07 22:44] LABS: Basophils # (auto) 0.1 10 ^3/uL (0-0.2); Basophils % (auto) 0.8 % (0.0-2.0); Eosinophils # (auto) 0.1 10 ^3/uL (0-0.8); Eosinophils % (auto) 1.3 % (0.0-7.0); Hemoglobin 12.9 g/dL (13.5-17.5); Lymphocytes # (auto) 2.6 10 ^3/uL (0.4-5.4); Lymphocytes % (auto) 32.5 % (10.0-50.0); Mean Corpuscular Hemoglobin 30.9 pg (28.0-32.0); Mean Corpuscular Hgb Conc. 33.9 g/dL (32.0-36.0); Mean Corpuscular Volume 91.1 fL (80.0-100.0); Monocytes # (auto) 0.7 10 ^3/uL (0-1.3); Monocytes % (auto) 8.3 % (0.0-12.0); Neutrophils # (auto) 4.5 10 ^3/uL (1.6-8.6); Neutrophils % (auto) 57.1 % (37.0-80.0); Red Blood Cells 4.17 10^6/uL (4.5-5.90); Red Cell Distribution Width 14.5 % (11.8-14.3); White Blood Cell 7.9 10^3/uL (4.4-10.8)
[2020-12-07 23:09] LABS: Albumin 3.4 g/dL (3.4-5.0); Calcium 8.8 mg/dL (8.5-10.1); Magnesium 2.3 mg/dL (1.6-2.6); Potassium 3.9 mmol/L (3.5-5.1)
[2020-12-07 23:16] LABS: Bilirubin, Total 0.2 mg/dL (0.2-1.0); Total Protein 6.9 g/dL (6.4-8.2)
[2020-12-08 03:20] VITALS: BP 99/62
== END 2020-12-08 09:43 | disposition left against medical advice (07) ==
LOC: EDBD 21:40 → ER 21:42
DX: R00.2 Palpitations (principal); R42 Dizziness and giddiness; I11.0 Hypertensive heart disease with heart failure; I50.9 Heart failure, unspecified; E11.9 Type 2 diabetes mellitus without complications; E78.00 Pure hypercholesterolemia, unspecified; I25.2 Old myocardial infarction; Z95.4 Presence of other heart-valve replacement; Z98.890 Other specified postprocedural states; Z88.0 Allergy status to penicillin; Z79.82 Long term (current) use of aspirin; Z79.899 Other long term (current) drug therapy
CPT/HCPCS: 36415; 71045; 80053; 83735; 84443; 84484; 85025; 85379; 93005

== ENCOUNTER 2021-03-21 12:04 | Inpatient (IN) | payer OTHER ==
[~2021-03-21] VITALS: Ht 180.3 cm; Wt 80.9 kg
[2021-03-21 13:26] LABS: Basophils # (auto) 0 10 ^3/uL (0-0.2); Basophils % (auto) 0.5 % (0.0-2.0); Eosinophils # (auto) 0 10 ^3/uL (0-0.8); Eosinophils % (auto) 0.4 % (0.0-7.0); Hematocrit 42.7 % (41.0-53.0); Hemoglobin 14.4 g/dL (13.5-17.5); Lymphocytes # (auto) 2.9 10 ^3/uL (0.4-5.4); Lymphocytes % (auto) 30.2 % (10.0-50.0); Mean Corpuscular Hemoglobin 31.4 pg (28.0-32.0); Mean Corpuscular Hgb Conc. 33.8 g/dL (32.0-36.0); Mean Corpuscular Volume 92.9 fL (80.0-100.0); Monocytes # (auto) 0.7 10 ^3/uL (0-1.3); Monocytes % (auto) 7.8 % (0.0-12.0); Neutrophils # (auto) 5.9 10 ^3/uL (1.6-8.6); Neutrophils % (auto) 61.1 % (37.0-80.0); Red Cell Distribution Width 14.5 % (11.8-14.3); White Blood Cell 9.6 10^3/uL (4.4-10.8)
[2021-03-21 13:39] LABS: Albumin 3.7 g/dL (3.4-5.0); Calcium 9.7 mg/dL (8.5-10.1); INR 1.05 (0.9-1.15); Partial Thromboplastin Time 24.7 sec (23.6-33.0); Potassium 4.2 mmol/L (3.5-5.1)
[2021-03-21 13:44] LABS: BUN/Creatinine Ratio 20.4; Bilirubin, Total 0.4 mg/dL (0.2-1.0)
[2021-03-21] MEDS ORDERED: ASPirin 81 mg TAB PO ONE (16:45)
[2021-03-21] MEDS ORDERED: ENOXAPARIN SOD 100 MG/1 ML SYRINGE SC ONE (16:45)
[2021-03-21] MEDS ORDERED: ONDANSETRON HCL 4 MG/2 ML VIAL IV PRN (17:15)
[2021-03-21] MEDS ORDERED: LORazepam 0.5 MG TAB PO PRN (17:15)
[2021-03-21] MEDS ORDERED: NITROGLYCERIN 0.4 MG SL TAB SL PRN (17:15)
[2021-03-21] MEDS ORDERED: ACETAMINOPHEN 325 MG TAB PO PRN (17:15)
[2021-03-21] MEDS ORDERED: DOCUSATE SOD 100 MG CAP PO PRN (17:15)
[2021-03-21] MEDS ORDERED: MORPHINE SULFATE INJECTION 2 MG/ML SYRG IV PRN (17:15)
[2021-03-21] MEDS ORDERED: HYDROcodone-ACET 5/325MG TAB PO PRN (17:15)
[2021-03-21] MEDS ORDERED: ATORVASTATIN 20 MG TAB PO ONE (17:45)
[2021-03-21] MEDS ORDERED: DEXTROSE (50%) 50ML SYRG IV PRN (17:45)
[2021-03-21 18:15] LABS: Urine WBC None Seen /hpf (0 - 3)
[2021-03-21 18:39] LABS: Urine Bacteria NONE SEEN /hpf (None Seen); Urine Blood Negative /uL (Negative); Urine Hyaline Cast FEW /lpf (0 - 2); Urine Specific Gravity 1.008 (1.001-1.035)
[2021-03-21] MEDS: InsuLIN REG 1unit/0.01ml Soln (100units/ml) SC SCH (21:27)
[2021-03-21] MEDS: ACCU-CHEK COMFORT CURVE STRIP VI SCH (21:27)
[2021-03-21] MEDS: METOPROLOL TARTRATE 25 MG TAB PO SCH (22:00)
[2021-03-21 23:38] VITALS: BP 99/65
[2021-03-21] MEDS ORDERED: BENA5TAB9 PO (23:46)
[2021-03-21] MEDS ORDERED: ASPI-498 PO (23:46)
[2021-03-21] MEDS ORDERED: SPIR25TA8 PO (23:46)
[2021-03-21] MEDS ORDERED: TICA90TA PO (23:46)
[2021-03-21] MEDS ORDERED: ATOR40TA52 PO (23:46)
[2021-03-21] MEDS ORDERED: NITR0.4S29 PO (23:48)
[2021-03-22 05:00] VITALS: BP 100/66
[2021-03-22] MEDS: ENOXAPARIN SOD 100 MG/1 ML SYRINGE SC SCH ×2 (06:08→17:05)
[2021-03-22] MEDS: ACCU-CHEK COMFORT CURVE STRIP VI SCH ×4 (06:41→23:01)
[2021-03-22] MEDS: InsuLIN REG 1unit/0.01ml Soln (100units/ml) SC SCH ×3 (06:41→17:00)
[2021-03-22 09:00] VITALS: BP 116/78
[2021-03-22] MEDS: ASPirin 81 mg TAB PO SCH (10:04)
[2021-03-22] MEDS: METOPROLOL TARTRATE 25 MG TAB PO SCH ×2 (10:05→22:00)
[2021-03-22 13:00] VITALS: BP 113/73
[2021-03-22 16:44] VITALS: BP 113/70
[2021-03-22 20:00] VITALS: BP 99/65
[2021-03-22 22:00] VITALS: BP 99/65
[2021-03-23 05:00] VITALS: BP 127/52
[2021-03-23 09:01] VITALS: BP 135/92
[2021-03-23 09:03] VITALS: BP 135/92
[2021-03-23] MEDS: ASPirin 81 mg TAB PO SCH (09:18)
[2021-03-23] MEDS: METOPROLOL TARTRATE 25 MG TAB PO SCH (09:19)
[2021-03-23] MEDS: InsuLIN REG 1unit/0.01ml Soln (100units/ml) SC SCH (11:30)
[2021-03-23] MEDS: ACCU-CHEK COMFORT CURVE STRIP VI SCH (11:30)
[2021-03-23] MEDS ORDERED: METOPROLOL TARTRATE 25 MG TAB PO ONE (12:00)
[2021-03-23] MEDS ORDERED: DIGOXIN 0.125 MG TAB PO ONE (12:00)
[2021-03-23 13:19] VITALS: BP 144/86
== END 2021-03-23 17:00 | disposition home or self-care (01) | DRG 309 ==
LOC: ER 12:04 → TELE 17:09 → TELE-WESTW 21:42
PROVIDERS: ADMIT Family Medicine; ATTEND Family Medicine
DX: I47.1 Supraventricular tachycardia (principal); I50.22 Chronic systolic (congestive) heart failure; Z20.822 Contact with and (suspected) exposure to COVID-19; E11.65 Type 2 diabetes mellitus with hyperglycemia; E66.3 Overweight; E78.5 Hyperlipidemia, unspecified; I11.0 Hypertensive heart disease with heart failure; I25.10 Atherosclerotic heart disease of native coronary artery without angina pectoris; I25.5 Ischemic cardiomyopathy; Z83.3 Family history of diabetes mellitus; Z68.24 Body mass index [BMI] 24.0-24.9, adult; Z88.0 Allergy status to penicillin; Z95.2 Presence of prosthetic heart valve; Z95.5 Presence of coronary angioplasty implant and graft
CPT/HCPCS: 36415; 71045; 80053; 81001; 82962; 84484; 85025; 85610; 85730; 87426; 93005; 96372; 99291; G0378; J1815

== ENCOUNTER 2022-01-23 13:02 | Inpatient (IN) | payer OTHER ==
[2022-01-23] VITALS (10 sets, daily range): BP systolic 97–132; BP diastolic 56–75
[~2022-01-23] VITALS: Ht 180.3 cm; Wt 71.4 kg
[~2022-01-23 13:02] MED LIST changes: +ATOR40TA52 PO; +BENA5TAB9 PO; -CLOP75TA70 PO; -MET25T PO; +NITR0.4S29 PO; -POTA10TA51 PO; +SPIR25TA8 PO; +TICA90TA PO
[2022-01-23 14:11] LABS: Basophils # (auto) 0 10 ^3/uL (0-0.2); Basophils % (auto) 0.4 % (0.0-2.0); Eosinophils # (auto) 0.1 10 ^3/uL (0-0.8); Eosinophils % (auto) 1.2 % (0.0-7.0); Hematocrit 40.5 % (41.0-53.0); Hemoglobin 13.4 g/dL (13.5-17.5); Lymphocytes # (auto) 2.5 10 ^3/uL (0.4-5.4); Lymphocytes % (auto) 30.5 % (10.0-50.0); Mean Corpuscular Hemoglobin 30.1 pg (28.0-32.0); Mean Corpuscular Hgb Conc. 33.2 g/dL (32.0-36.0); Mean Corpuscular Volume 90.9 fL (80.0-100.0); Monocytes # (auto) 0.5 10 ^3/uL (0-1.3); Monocytes % (auto) 6.5 % (0.0-12.0); Neutrophils # (auto) 5.1 10 ^3/uL (1.6-8.6); Neutrophils % (auto) 61.4 % (37.0-80.0); Nucleated Red Blood Cells % 0.2 %; Red Blood Cells 4.46 10^6/uL (4.5-5.90); Red Cell Distribution Width 14.1 % (11.8-14.3); White Blood Cell 8.3 10^3/uL (4.4-10.8)
[2022-01-23 14:52] LABS: Potassium 4.8 mmol/L (3.5-5.1)
[2022-01-23 14:59] LABS: Albumin 4.3 g/dL (3.4-5.0); BUN/Creatinine Ratio 24.7; Bilirubin, Total 0.7 mg/dL (0.2-1.0); Calcium 9.5 mg/dL (8.5-10.1); Magnesium 2.6 mg/dL (1.6-2.6); Total Protein 7.5 g/dL (6.4-8.2)
[2022-01-23] MEDS ORDERED: ENOXAPARIN SOD 100 MG/1 ML SYRINGE SC ONE (15:30)
[2022-01-23] MEDS ORDERED: MORPHINE SULFATE INJ 2 MG/ml SYRG IV PRN ×2 (17:00→21:15)
[2022-01-23] MEDS ORDERED: DEXTROSE (50%) 50ML SYRG IV PRN (17:00)
[2022-01-23] MEDS: InsuLIN REG 1unit/0.01ml Soln (100units/ml) SC SCH ×2 (17:00→22:00)
[2022-01-23] MEDS ORDERED: NITROGLYCERIN 0.4 MG SL TAB SL PRN ×2 (17:00→21:15)
[2022-01-23] MEDS: ACCU-CHEK COMFORT CURVE STRIP VI SCH ×2 (17:00→22:20)
[2022-01-23 17:30] LABS: Magnesium 2.2 mg/dL (1.6-2.6)
[2022-01-23 17:31] LABS: INR 1.02 (0.9-1.15); Partial Thromboplastin Time 26.2 sec (24.6-33.4)
[2022-01-23] MEDS ORDERED: LIDOCAINE 2%HCL (LOCAL ANESTH.) INJ 20ML MDV ONE (18:00)
[2022-01-23] MEDS ORDERED: IOHEXOL 350 MG/ML 100ML IJ ONE (18:00)
[2022-01-23] MEDS ORDERED: ATROPINE SULF 1 MG/10ml SYR ONE (18:15)
[2022-01-23] MEDS ORDERED: VERAPAMIL 2.5MG/ML INJ 2ML VIAL IV ONE (18:16)
[2022-01-23] MEDS ORDERED: SODIUM CHL 0.9% 50 ML ONE (18:16)
[2022-01-23] MEDS ORDERED: HEPARIN SODIUM (PORCINE) 5000 UNITS/ML 1ML VIAL ONE (18:16)
[2022-01-23] MEDS ORDERED: ANGIOMAX 250 MG VIAL IV ONE (18:16)
[2022-01-23] MEDS ORDERED: IODIXANOL 320MG/ML 100ML BTL IV ONE ×2 (18:18→19:01)
[2022-01-23] MEDS ORDERED: fentaNYL CITRATE 100 MCG/2 ML VL ONE ×2 (18:18→19:32)
[2022-01-23] MEDS ORDERED: MIDAZOLAM HCL 2MG/2ML 2ml VIAL (1mg/ml) ONE ×2 (18:18→19:33)
[2022-01-23] MEDS ORDERED: diphenhdrAMINE HCL 50 MG/1 ML VL ONE (20:27)
[2022-01-23] MEDS: ATORVASTATIN 20 MG TAB PO SCH (22:19)
[2022-01-23] MEDS: TICAGRELOR 90 MG TAB PO SCH (22:19)
[2022-01-24] VITALS (32 sets, daily range): BP systolic 91–122; BP diastolic 51–77
[2022-01-24 03:50] LABS: Basophils # (auto) 0 10 ^3/uL (0-0.2); Basophils % (auto) 0.5 % (0.0-2.0); Eosinophils # (auto) 0 10 ^3/uL (0-0.8); Eosinophils % (auto) 0.4 % (0.0-7.0); Hematocrit 38.9 % (41.0-53.0); Hemoglobin 13.3 g/dL (13.5-17.5); Lymphocytes # (auto) 2.7 10 ^3/uL (0.4-5.4); Lymphocytes % (auto) 29.3 % (10.0-50.0); Mean Corpuscular Hgb Conc. 34.1 g/dL (32.0-36.0); Mean Corpuscular Volume 90.9 fL (80.0-100.0); Monocytes # (auto) 0.7 10 ^3/uL (0-1.3); Monocytes % (auto) 7.4 % (0.0-12.0); Neutrophils # (auto) 5.8 10 ^3/uL (1.6-8.6); Neutrophils % (auto) 62.4 % (37.0-80.0); Nucleated Red Blood Cells % 0.1 %; Red Blood Cells 4.28 10^6/uL (4.5-5.90); Red Cell Distribution Width 14.1 % (11.8-14.3); White Blood Cell 9.3 10^3/uL (4.4-10.8)
[2022-01-24 04:05] LABS: Calcium 9.2 mg/dL (8.5-10.1)
[2022-01-24 04:09] LABS: BUN/Creatinine Ratio 27.9
[2022-01-24] MEDS: InsuLIN REG 1unit/0.01ml Soln (100units/ml) SC SCH ×4 (06:50→21:46)
[2022-01-24] MEDS: ACCU-CHEK COMFORT CURVE STRIP VI SCH ×4 (06:51→21:32)
[2022-01-24] MEDS ORDERED: DIGO0.12 PO (08:09)
[2022-01-24] MEDS: TICAGRELOR 90 MG TAB PO SCH ×2 (09:36→21:31)
[2022-01-24] MEDS: ASPirin 81 mg TAB PO SCH (09:36)
[2022-01-24] MEDS: ATORVASTATIN 20 MG TAB PO SCH (21:32)
[2022-01-25 00:24] VITALS: BP 129/79
[2022-01-25 06:00] VITALS: BP 111/66
[2022-01-25] MEDS: ACCU-CHEK COMFORT CURVE STRIP VI SCH ×4 (06:40→21:53)
[2022-01-25] MEDS: InsuLIN REG 1unit/0.01ml Soln (100units/ml) SC SCH ×4 (06:40→21:53)
[2022-01-25 09:23] VITALS: BP 137/85
[2022-01-25] MEDS: ASPirin 81 mg TAB PO SCH (09:36)
[2022-01-25] MEDS: TICAGRELOR 90 MG TAB PO SCH ×2 (09:36→21:51)
[2022-01-25] MEDS ORDERED: CARVEDILOL 3.125 MG TAB PO ONE (11:15)
[2022-01-25 13:00] VITALS: BP 141/82
[2022-01-25 17:28] VITALS: BP 108/67
[2022-01-25] MEDS: ATORVASTATIN 20 MG TAB PO SCH (21:51)
[2022-01-25] MEDS: CARVEDILOL 3.125 MG TAB PO SCH (21:52)
[2022-01-25 22:02] VITALS: BP 100/60
[2022-01-26] VITALS (9 sets, daily range): BP systolic 100–142; BP diastolic 55–91
[2022-01-26 05:59] LABS: Basophils # (auto) 0 10 ^3/uL (0-0.2); Basophils % (auto) 0.5 % (0.0-2.0); Eosinophils # (auto) 0.2 10 ^3/uL (0-0.8); Eosinophils % (auto) 2.1 % (0.0-7.0); Hematocrit 38.5 % (41.0-53.0); Lymphocytes # (auto) 1.8 10 ^3/uL (0.4-5.4); Lymphocytes % (auto) 25.7 % (10.0-50.0); Mean Corpuscular Hemoglobin 30.5 pg (28.0-32.0); Mean Corpuscular Hgb Conc. 33.7 g/dL (32.0-36.0); Mean Corpuscular Volume 90.6 fL (80.0-100.0); Monocytes # (auto) 0.6 10 ^3/uL (0-1.3); Monocytes % (auto) 8.2 % (0.0-12.0); Neutrophils # (auto) 4.6 10 ^3/uL (1.6-8.6); Neutrophils % (auto) 63.5 % (37.0-80.0); Red Blood Cells 4.25 10^6/uL (4.5-5.90); Red Cell Distribution Width 14.4 % (11.8-14.3); White Blood Cell 7.2 10^3/uL (4.4-10.8)
[2022-01-26 06:08] LABS: INR 1.03 (0.9-1.15); Partial Thromboplastin Time 26.4 sec (24.6-33.4)
[2022-01-26 06:13] LABS: Calcium 8.5 mg/dL (8.5-10.1); Potassium 4.2 mmol/L (3.5-5.1)
[2022-01-26] MEDS: InsuLIN REG 1unit/0.01ml Soln (100units/ml) SC SCH ×4 (07:00→22:00)
[2022-01-26] MEDS: ACCU-CHEK COMFORT CURVE STRIP VI SCH ×4 (07:00→22:16)
[2022-01-26] MEDS: ASPirin 81 mg TAB PO SCH (09:13)
[2022-01-26] MEDS: CARVEDILOL 3.125 MG TAB PO SCH ×2 (09:13→22:16)
[2022-01-26] MEDS: TICAGRELOR 90 MG TAB PO SCH ×2 (09:13→22:15)
[2022-01-26] MEDS ORDERED: IOHEXOL 350 MG/ML 100ML IJ ONE (16:00)
[2022-01-26] MEDS ORDERED: LIDOCAINE 2%HCL (LOCAL ANESTH.) INJ 20ML MDV ONE (16:00)
[2022-01-26] MEDS ORDERED: VERAPAMIL 2.5MG/ML INJ 2ML VIAL IV ONE (16:18)
[2022-01-26] MEDS ORDERED: fentaNYL CITRATE 100 MCG/2 ML VL ONE (16:18)
[2022-01-26] MEDS ORDERED: HEPARIN SODIUM (PORCINE) 5000 UNITS/ML 1ML VIAL ONE (16:18)
[2022-01-26] MEDS ORDERED: ANGIOMAX 250 MG VIAL IV ONE ×2 (16:18→17:49)
[2022-01-26] MEDS ORDERED: SODIUM CHL 0.9% 50 ML ONE ×2 (16:19→17:49)
[2022-01-26] MEDS ORDERED: MIDAZOLAM HCL 2MG/2ML 2ml VIAL (1mg/ml) ONE (16:19)
[2022-01-26] MEDS ORDERED: HYDROmorphone HCL 2 MG/ML VL/or syr ONE (17:21)
[2022-01-26] MEDS: ATORVASTATIN 20 MG TAB PO SCH (22:16)
[2022-01-27 03:41] LABS: Basophils # (auto) 0 10 ^3/uL (0-0.2); Basophils % (auto) 0.4 % (0.0-2.0); Eosinophils # (auto) 0.1 10 ^3/uL (0-0.8); Eosinophils % (auto) 0.9 % (0.0-7.0); Hematocrit 37.9 % (41.0-53.0); Hemoglobin 12.5 g/dL (13.5-17.5); Lymphocytes # (auto) 1.5 10 ^3/uL (0.4-5.4); Lymphocytes % (auto) 17.6 % (10.0-50.0); Mean Corpuscular Hemoglobin 30.4 pg (28.0-32.0); Mean Corpuscular Hgb Conc. 32.9 g/dL (32.0-36.0); Mean Corpuscular Volume 92.4 fL (80.0-100.0); Monocytes # (auto) 0.6 10 ^3/uL (0-1.3); Neutrophils # (auto) 6.3 10 ^3/uL (1.6-8.6); Neutrophils % (auto) 74.1 % (37.0-80.0); Red Cell Distribution Width 14.6 % (11.8-14.3); White Blood Cell 8.4 10^3/uL (4.4-10.8)
[2022-01-27 05:00] VITALS: BP 107/54
[2022-01-27] MEDS: InsuLIN REG 1unit/0.01ml Soln (100units/ml) SC SCH ×4 (06:02→21:53)
[2022-01-27] MEDS: ACCU-CHEK COMFORT CURVE STRIP VI SCH ×4 (06:02→21:35)
[2022-01-27 08:00] VITALS: BP 101/61
[2022-01-27] MEDS: TICAGRELOR 90 MG TAB PO SCH ×2 (08:59→21:34)
[2022-01-27] MEDS: CARVEDILOL 3.125 MG TAB PO SCH ×2 (08:59→21:35)
[2022-01-27] MEDS: ASPirin 81 mg TAB PO SCH (08:59)
[2022-01-27 09:08] LABS: BUN/Creatinine Ratio 27.8; Calcium 8.3 mg/dL (8.5-10.1)
[2022-01-27] MEDS ORDERED: TICA90TA PO (11:46)
[2022-01-27] MEDS ORDERED: ASPI-325 PO (11:46)
[2022-01-27] MEDS ORDERED: CAR3125T PO (11:46)
[2022-01-27] MEDS ORDERED: ATOR40TA52 PO (11:46)
[2022-01-27 12:00] VITALS: BP 127/81
[2022-01-27 16:00] VITALS: BP 139/84
[2022-01-27] MEDS: ATORVASTATIN 20 MG TAB PO SCH (21:34)
[2022-01-27 22:00] VITALS: BP 106/68
[2022-01-28 05:00] VITALS: BP 114/74
[2022-01-28 05:41] LABS: Basophils # (auto) 0 10 ^3/uL (0-0.2); Basophils % (auto) 0.4 % (0.0-2.0); Eosinophils # (auto) 0.1 10 ^3/uL (0-0.8); Eosinophils % (auto) 1.5 % (0.0-7.0); Hematocrit 34.8 % (41.0-53.0); Hemoglobin 11.9 g/dL (13.5-17.5); Lymphocytes # (auto) 2.2 10 ^3/uL (0.4-5.4); Lymphocytes % (auto) 29.2 % (10.0-50.0); Mean Corpuscular Hemoglobin 31.5 pg (28.0-32.0); Mean Corpuscular Hgb Conc. 34.1 g/dL (32.0-36.0); Mean Corpuscular Volume 92.4 fL (80.0-100.0); Monocytes # (auto) 0.7 10 ^3/uL (0-1.3); Neutrophils # (auto) 4.5 10 ^3/uL (1.6-8.6); Neutrophils % (auto) 59.9 % (37.0-80.0); Nucleated Red Blood Cells % 0.1 %; Red Blood Cells 3.77 10^6/uL (4.5-5.90); Red Cell Distribution Width 14.5 % (11.8-14.3); White Blood Cell 7.6 10^3/uL (4.4-10.8)
[2022-01-28 05:50] LABS: BUN/Creatinine Ratio 22.1; Calcium 8.2 mg/dL (8.5-10.1)
[2022-01-28 05:52] LABS: Partial Thromboplastin Time 26.2 sec (24.6-33.4)
[2022-01-28] MEDS: ACCU-CHEK COMFORT CURVE STRIP VI SCH ×3 (06:15→17:26)
[2022-01-28] MEDS: InsuLIN REG 1unit/0.01ml Soln (100units/ml) SC SCH ×3 (06:22→17:00)
[2022-01-28 08:25] VITALS: BP 116/75
[2022-01-28] MEDS: TICAGRELOR 90 MG TAB PO SCH (08:35)
[2022-01-28] MEDS: ASPirin 81 mg TAB PO SCH (08:35)
[2022-01-28] MEDS: CARVEDILOL 3.125 MG TAB PO SCH (08:36)
[2022-01-28 12:20] VITALS: BP 99/65
[2022-01-28 16:20] VITALS: BP 108/63
[2022-01-28 16:53] VITALS: BP 99/65
== END 2022-01-28 19:20 | disposition home or self-care (01) | DRG 246 ==
LOC: EDBD 13:02 → EDUNIT# 13:02 → ER 13:02 → TELE 21:05 → ICU WEST 21:48 → TELE-WESTW 01-24 16:34
PROVIDERS: ADMIT Internal Medicine; ATTEND Hospitalist
PROC: 02723ZZ Dilation of Coronary Artery, Three Arteries, Percutaneous Approach (ICD-10-PCS; principal; 2022-01-23)
PROC: 4A023N7 Measurement of Cardiac Sampling and Pressure, Left Heart, Percutaneous Approach (ICD-10-PCS; 2022-01-23)
PROC: B211YZZ Fluoroscopy of Multiple Coronary Arteries using Other Contrast (ICD-10-PCS; 2022-01-23)
PROC: B215YZZ Fluoroscopy of Left Heart using Other Contrast (ICD-10-PCS; 2022-01-23)
PROC: 02C13ZZ Extirpation of Matter from Coronary Artery, Two Arteries, Percutaneous Approach (ICD-10-PCS; 2022-01-23)
PROC: 027036Z Dilation of Coronary Artery, One Artery with Three Drug-eluting Intraluminal Devices, Percutaneous Approach (ICD-10-PCS; 2022-01-26)
PROC: 02C03Z7 Extirpation of Matter from Coronary Artery, One Artery, Orbital Atherectomy Technique, Percutaneous Approach (ICD-10-PCS; 2022-01-26)
DX: T82.855A Stenosis of coronary artery stent, initial encounter (principal); I21.4 Non-ST elevation (NSTEMI) myocardial infarction; I47.1 Supraventricular tachycardia; I50.22 Chronic systolic (congestive) heart failure; I42.9 Cardiomyopathy, unspecified; I25.110 Atherosclerotic heart disease of native coronary artery with unstable angina pectoris; E78.5 Hyperlipidemia, unspecified; E11.9 Type 2 diabetes mellitus without complications; Y83.1 Surgical operation with implant of artificial internal device as the cause of abnormal reaction of the patient, or of later complication, without mention of misadventure at the time of the procedure; Z20.822 Contact with and (suspected) exposure to COVID-19; I11.0 Hypertensive heart disease with heart failure; Z79.84 Long term (current) use of oral hypoglycemic drugs; Z82.49 Family history of ischemic heart disease and other diseases of the circulatory system; Z83.3 Family history of diabetes mellitus; Z95.2 Presence of prosthetic heart valve; Z88.0 Allergy status to penicillin; Y92.89 Other specified places as the place of occurrence of the external cause
CPT/HCPCS: 36415; 71045; 80048; 80053; 80061; 82962; 83036; 83735; 83880; 84443; 84484; 85025; 85610; 85730; 86850; 86900; 86901; 87081; 87426; 93005; 93306; 96372; 99152; 99153; 99291; C1724; C1769; C1874; C1887; G0378; J1815; J2250; Q9967

== ENCOUNTER 2022-08-02 13:23 | Inpatient (IN) | payer OTHER ==
[~2022-08-02] VITALS: Ht 182.9 cm; Wt 65.0 kg
[~2022-08-02 13:23] MED LIST changes: +ASPI-325 PO; -BENA5TAB9 PO; +CAR3125T PO; -LATA0.0019 EACHEYE; -NITR0.4S29 PO
[2022-08-02 13:55] LABS: Basophils # (auto) 0 10 ^3/uL (0-0.2); Basophils % (auto) 0.6 % (0.0-2.0); Eosinophils # (auto) 0.1 10 ^3/uL (0-0.8); Eosinophils % (auto) 1.2 % (0.0-7.0); Hematocrit 43.1 % (41.0-53.0); Hemoglobin 14.5 g/dL (13.5-17.5); Lymphocytes # (auto) 2.9 10 ^3/uL (0.4-5.4); Lymphocytes % (auto) 38.7 % (10.0-50.0); Mean Corpuscular Hemoglobin 30.9 pg (28.0-32.0); Mean Corpuscular Hgb Conc. 33.7 g/dL (32.0-36.0); Mean Corpuscular Volume 91.5 fL (80.0-100.0); Monocytes # (auto) 0.6 10 ^3/uL (0-1.3); Monocytes % (auto) 8.3 % (0.0-12.0); Neutrophils # (auto) 3.8 10 ^3/uL (1.6-8.6); Neutrophils % (auto) 51.2 % (37.0-80.0); Nucleated Red Blood Cells % 0.2 %; Red Cell Distribution Width 14.1 % (11.8-14.3); White Blood Cell 7.4 10^3/uL (4.4-10.8)
[2022-08-02 14:35] LABS: Albumin 4.1 g/dL (3.4-5.0); Calcium 9.6 mg/dL (8.5-10.1); Potassium 4.4 mmol/L (3.5-5.1)
[2022-08-02 14:41] LABS: Bilirubin, Total 0.7 mg/dL (0.2-1.0); Total Protein 7.4 g/dL (6.4-8.2)
[2022-08-02] MEDS ORDERED: dilTIAZem 25 MG/5 ML VIAL IV ONE (14:45)
[2022-08-02] MEDS ORDERED: MORPHINE SULFATE INJ 2 MG/ml SYRG IV PRN ×2 (19:30)
[2022-08-02] MEDS ORDERED: MAGNESIUM SULFATE 1GM/100ML 100 ML IV ONE (19:30)
[2022-08-02] MEDS ORDERED: DEXTROSE (50%) 50ML SYRG IV PRN (19:30)
[2022-08-02] MEDS ORDERED: HYDROcodone-ACET 5/325MG TAB PO PRN (19:30)
[2022-08-02] MEDS ORDERED: NITROGLYCERIN 0.4 MG SL TAB SL PRN (19:30)
[2022-08-02] MEDS ORDERED: ACETAMINOPHEN 325 MG TAB PO PRN (19:30)
[2022-08-02] MEDS ORDERED: AMIODARONE HCL 200 MG TAB PO ONE (19:45)
[2022-08-02 20:04] LABS: Cholesterol 98 mg/dL (< 200)
[2022-08-02 20:06] LABS: HDL Cholesterol 38 mg/dL (40-59); LDL Cholesterol 52 mg/dL (< 100); Triglycerides 81 mg/dL (< 150)
[2022-08-02 21:04] LABS: INR 1.04 (0.9-1.15); Partial Thromboplastin Time 26.2 sec (24.6-33.4)
[2022-08-02] MEDS: InsuLIN REG 1unit/0.01ml Soln (100units/ml) SC SCH (21:16)
[2022-08-02] MEDS: ACCU-CHEK COMFORT CURVE STRIP VI SCH (21:16)
[2022-08-02] MEDS: CARVEDILOL 3.125 MG TAB PO SCH (21:16)
[2022-08-02] MEDS: TICAGRELOR 90 MG TAB PO SCH (21:21)
[2022-08-02] MEDS ORDERED: ATORVASTATIN 20 MG TAB PO SCH (22:00)
[2022-08-03 06:15] LABS: Basophils # (auto) 0.1 10 ^3/uL (0-0.2); Basophils % (auto) 0.7 % (0.0-2.0); Eosinophils # (auto) 0 10 ^3/uL (0-0.8); Eosinophils % (auto) 0.6 % (0.0-7.0); Hemoglobin 13.8 g/dL (13.5-17.5); Lymphocytes # (auto) 3.1 10 ^3/uL (0.4-5.4); Lymphocytes % (auto) 37.8 % (10.0-50.0); Mean Corpuscular Hemoglobin 32.2 pg (28.0-32.0); Mean Corpuscular Hgb Conc. 35.3 g/dL (32.0-36.0); Monocytes # (auto) 0.5 10 ^3/uL (0-1.3); Monocytes % (auto) 6.6 % (0.0-12.0); Neutrophils # (auto) 4.4 10 ^3/uL (1.6-8.6); Neutrophils % (auto) 54.3 % (37.0-80.0); Nucleated Red Blood Cells % 0.2 %; Red Blood Cells 4.29 10^6/uL (4.5-5.90); White Blood Cell 8.2 10^3/uL (4.4-10.8)
[2022-08-03 06:39] LABS: Albumin 3.9 g/dL (3.4-5.0); BUN/Creatinine Ratio 26.9 (10.0-20.0); Bilirubin, Total 0.6 mg/dL (0.2-1.0); Calcium 9.3 mg/dL (8.5-10.1); Total Protein 7.3 g/dL (6.4-8.2)
[2022-08-03] MEDS: ACCU-CHEK COMFORT CURVE STRIP VI SCH ×2 (08:16→11:15)
[2022-08-03] MEDS: InsuLIN REG 1unit/0.01ml Soln (100units/ml) SC SCH ×2 (08:24→11:18)
[2022-08-03] MEDS ORDERED: SPIRONOLACTONE 25 MG TAB PO SCH (10:00)
[2022-08-03] MEDS ORDERED: AMIODARONE HCL 200 MG TAB PO SCH (10:00)
[2022-08-03] MEDS ORDERED: FUROSEMIDE 40 MG TAB PO SCH (10:00)
[2022-08-03] MEDS ORDERED: ASPirin-EC 81 mg tab PO SCH (10:00)
[2022-08-03] MEDS ORDERED: ASPirin 81 mg TAB PO SCH (10:00)
[2022-08-03] MEDS: CARVEDILOL 3.125 MG TAB PO SCH (10:19)
[2022-08-03] MEDS: TICAGRELOR 90 MG TAB PO SCH (10:19)
[2022-08-03 14:03] VITALS: BP 109/71
== END 2022-08-03 14:30 | disposition home or self-care (01) | DRG 308 ==
LOC: ER 13:23 → TELE 19:34
PROVIDERS: ADMIT Registered Nurse; ATTEND Internal Medicine
DX: I47.1 Supraventricular tachycardia (principal); I50.23 Acute on chronic systolic (congestive) heart failure; I42.9 Cardiomyopathy, unspecified; I48.0 Paroxysmal atrial fibrillation; I11.0 Hypertensive heart disease with heart failure; E78.5 Hyperlipidemia, unspecified; E11.9 Type 2 diabetes mellitus without complications; I25.10 Atherosclerotic heart disease of native coronary artery without angina pectoris; Z79.02 Long term (current) use of antithrombotics/antiplatelets; Z83.3 Family history of diabetes mellitus; Z88.0 Allergy status to penicillin; Z95.2 Presence of prosthetic heart valve; Z95.5 Presence of coronary angioplasty implant and graft
CPT/HCPCS: 36415; 71045; 80053; 80061; 82962; 83036; 83880; 84443; 84484; 85025; 85610; 85730; 93005; 96374; G0378; J1815

== ENCOUNTER 2025-03-18 08:18 | Emergency (ER) | payer OTHER ==
[~2025-03-18] VITALS: Ht 175.3 cm; Wt 85.8 kg
[~2025-03-18 08:18] MED LIST changes: -ASPI325T4 PO; +ASPI325T6 PO; -CAR3125T PO; +CARV-214 PO; -SIMV-8 PO; +SIMV20TA20 PO
--- NOTE | 2025-03-18 08:39 | ECG ---
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
--- NOTE | 2025-03-18 08:51 | ED.PDOC ---
History of Present Illness HPI Comments 74-year-old male came to the ER stating that he has been having shortness a breath for many months but last few days has been worse. Denies chest pain. Denies nausea vomiting. Denies headache dizziness. He does have a history of diabetes coronary artery disease pacemaker. Denies any other symptoms. Chief Complaint: Shortness of Breath Time Seen by MD: 08:38 Primary Care Provider: LIAM Reviewed Notes: Nurses Notes, Medications, Allergies Allergies: Coded Allergies: Penicillins (Verified Allergy, Unknown, 07/23/20) Home Meds Active Scripts Atorvastatin Calcium (ATORVASTATIN CALCIUM) 40 Mg Tab, 1 TAB PO QPM for 90 Days, #90 TAB 3 Refills Prov:POOJA DICKEY [facility] 01/27/22 Ticagrelor Base (BRILINTA) 90 Mg Tab, 90 MG PO BID for 90 Days, #180 TAB Prov:POOJA DICKEY [facility] 01/27/22 Carvedilol (COREG) 3.125 Mg Tab, 3.125 MG PO Q12HR for 90 Days, #180 TAB Prov:POOJA DICKEY [facility] 01/27/22 Aspirin (Aspirin Low Dose) 81 Mg Tab, 81 MG PO DAILY for 90 Days, #90 TAB Prov:POOJA DICKEY [facility] 01/27/22 Reported Medications Ticagrelor Base (BRILINTA) 90 Mg Tab, 90 MG PO BID, TAB 03/21/21 Atorvastatin Calcium (ATORVASTATIN CALCIUM) 40 Mg Tab, 1 TAB PO HS 03/21/21 Spironolactone (Spironolactone) 25 Mg Tab, 1 TAB PO DAILY 03/21/21 Furosemide (Furosemide) 40 Mg Tab, 1 TAB PO DAILY, #30 TAB 5 Refills 11/21/20 Metformin Hydrochloride (Metformin Hcl) 500 Mg Tab, 500 MG PO DAILY for 30 Days, MG 08/02/20 Simvastatin (Simvastatin) 20 Mg Tab, 20 MG PO HS for 30 Days 08/02/20 Aspirin (Aspirin) 325 Mg Tab, 81 MG PO DAILY for 30 Days, MG 08/02/20 Information Source: Patient Mode of Arrival: Ambulatory Severity: Moderate Timing: Weeks Duration: Since onset Past Medical History PAST MEDICAL HISTORY: CHF, CKF, DM, High Lipids, HTN, [place] Surgical History: PTCA Family History Family History: Reviewed,noncontributory to illness Social History Smoker: Non-Smoker Alcohol: Denies ETOH Use Drugs: Denies Drug Use Lives In: Home Constitutional: denies: chills, diaphoresis, fatigue, fever, malaise, sweats, weakness, others EENTM: denies: blurred vision, double vision, ear bleeding, ear discharge, ear drainage, ear pain, ear ringing, eye pain, eye redness, hearing loss, mouth pain, mouth swelling, nasal discharge, nose bleeding, nose congestion, nose pain, photophobia, tearing, throat pain, throat swelling, voice changes, others Respiratory: reports: shortness of breath; denies: cough, hemoptysis, orthopnea, SOB at rest, SOB with excertion, stridor, wheezing, others Cardiovascular: denies: chest pain, dizzy spells, diaphoresis, Dyspnea on exertion, edema, irregular heart beat, left arm pain, lightheadedness, palpitations, PND, syncope, others Gastrointestinal: denies: abdomen distended, abdominal pain, blood streaked bowels, constipated, diarrhea, dysphagia, difficulty swallowing, hematemesis, melena, nausea, poor appetite, poor fluid intake, rectal bleeding, rectal pain, vomiting, others Genitourinary: denies: burning, dysuria, flank pain, frequency, hematuria, incontinence, penile discharge, penile sore, pain, testicle pain, testicle swelling, urgency, others Neurological: denies: dizziness, fainting, headache, left sided numbness, left sided weakness, numbness, paresthesia, pre-existing deficit, right sided numbness, right sided weakness, seizure, speech problems, tingling, tremors, weakness, others Musculoskeletal: denies: back pain, gout, joint pain, joint swelling, muscle pain, muscle stiffness, neck pain, others Integumetry: denies: bruises, change in color, change in hair/nails, dryness, laceration, lesions, lumps, rash, wounds, others Allergic/Immunocompromised: denies: Difficulty Healing, Frequent Infections, Hives, Itching, others Hematologic/Lymphatic: denies: anemia, blood clots, easy bleeding, easy bruising, swollen glands, others Endocrine: denies: excessive hunger, excessive sweating, excessive thirst, excessive urination, flushing, intolerance to cold, intolerance to heat, unexplained weight gain, unexplained weight loss, others Psychiatric: denies: anxiety, bipolar disorder, depression, hopeless, panic disorder, schizophrenia, sleepless, suicidal, others Physical Exam General Appearance: Moderate Distress HEENT: Normal ENT Inspection, Pharynx Normal, TMs Normal Neck: Full Range of Motion, Non-Tender, Normal, Normal Inspection Respiratory: Chest Non-Tender, Lungs Clear, No Accessory Muscle Use, No Respiratory Distress, Normal Breath Sounds Cardiovascular: No Edema, No JVD, No Murmur, No Gallop, Normal Peripheral Pulses, Regular Rate/Rhythm Breast Exam: Deferred Gastrointestinal: No Organomegaly, Non Tender, No Pulsatile Mass, Normal Bowel Sounds, Soft Genitalia: Deferred Pelvic: Deferred Rectal: Deferred Extremities: No calf tenderness, Normal capillary refill, Normal inspection, Normal range of motion, Non-tender, No pedal edema Musculoskeletal : Apperance: Normal Neurologic: Alert, technical service representative II-XII nml as Tested, No Motor Deficits, Normal Affect, Normal Mood, No Sensory Deficits Cerebellar Function: Normal Reflexes: Normal Skin: Dry, Normal Color, Warm Peripheral Pulses: 3+ Radial (R), 3+ Radial (L) Lymphatic: No Adenopathy Was a procedure done? Was a procedure done?: No EKG EKG : Pulse Rate (adult): 90 Cardiac Rhythm: NSR Differential Dx Considerations may include: Anemia Electrolyte imbalance X-Ray, Labs, Meds, VS Vital Signs Date Time Temp Pulse Resp B/P (MAP) Pulse Ox O2 Delivery O2 Flow Rate FiO2 03/18/25 13:23 98.0 98 20 131/83 (99) 96 98.0 03/18/25 10:01 97.9 88 16 136/81 (99) 97 97.9 03/18/25 10:01 88 16 97 Room Air 03/18/25 08:51 90 03/18/25 08:33 90 03/18/25 08:22 98.8 105 16 151/91 97 98.8 Lab Test 03/18/25 10:12 03/18/25 09:05 Range/Units Troponin I High Sensitivity 38 37 </=54 ng/L Current Medications Medications (Trade) Dose Ordered Sig/[place] Route Start Time Stop Time Status Last Admin Aspirin 325 mg ONCE ONCE PO 03/18/25 09:00 03/18/25 09:01 DC 03/18/25 09:53 Patient alert. Blood pressure slightly elevated. Saturation pristine on room air. Heart rate within normal limits pain Respiratory rate within normal limits. No leg swelling. No calf tenderness. No discoloration. He is anxious. Spoke with Cardiology. EKG reviewed does not show any acute changes. Explained to the patient. Was told to follow up with his primary care physician. Was told to come back if there is any problem. Time of 1ST Reevaluation: 08:49 Reevaluation 1ST: Improved Patient Education/Counseling: Diagnosis, Treatment, Prognosis, Need For Follow Up Family Education/Counseling: No Family Present SEPSIS Sepsis Screen Date sepsis recognized/suspect: Mar 18, 2025 Time Sepsis recognized/suspect: 821 Recent Procedure: No On Antibiotic Therapy: No Respiratory Rate >20: No Heart Rate >90: Yes Temp<36 C (96.8 F) or >38.3 C: No SBP <90 or MAP <65 mmHG: No New Acute Mental Status Change: No Is the patient on CPAP, BIPAP,: No Physician Orders Chest Portable (03/18/25 08:38) Vital Signs Date Time Temp Pulse Resp B/P (MAP) Pulse Ox O2 Delivery O2 Flow Rate FiO2 03/18/25 13:23 98.0 98 20 131/83 (99) 96 98.0 03/18/25 10:01 97.9 88 16 136/81 (99) 97 97.9 03/18/25 10:01 88 16 97 Room Air 03/18/25 08:51 90 03/18/25 08:33 90 03/18/25 08:22 98.8 105 16 151/91 97 98.8 Medications Medications Dose Ordered Sig/[place] Route Start Time Stop Time Status Last Admin Dose Admin Aspirin 325 mg ONCE ONCE PO 03/18/25 09:00 03/18/25 09:01 DC 03/18/25 09:53 Departure 1 Departure Time of Disposition: 08:50 Impression: Primary Impression: Hypertensive urgency Disposition: 01 HOME / SELF CARE / HOMELESS Condition: Good Discharged With: Self Critical Care Note Critical Care Time?: No Stability Stability form required: No Heart Score Heart Score: Heart Score Response (Comments) Value History Slightly Suspicious 0 EKG Normal 0 Age >65 2 Risk Factors >3 or Hx ASHD 2 Troponin Normal limit 0 Total 4 RITA CORTES MD Mar 18, 2025 08:51
[2025-03-18] MEDS ORDERED: FUROSEMIDE 20 MG/2 ML VIAL IV ONE (09:00)
--- NOTE | 2025-03-18 09:33 | DVH ---
CHEST RADIOGRAPH Indication: sob Technique: Single frontal view of the chest was obtained Comparison: XR CHEST 1 VIEW on DOS: 08/20/22, XY CHEST XRAY 1 VIEW on DOS: 08/02/22, EKG on DOS: 01/25/22 FINDINGS: Lines and Tubes: Interval placement of the pacemaker dual-chamber with the pulse generator over the left chest. There is no left-sided pneumothorax. Lungs: Mildly prominent vascular markings in the perihilar areas. May be secondary from positioning for pacemaker.. Pleura: No effusion. No pneumothorax. Cardiomediastinal contours: Dual-chamber pacemaker in place. Bones: No acute osseous abnormality. IMPRESSION: 1. Interval placement of a dual-chamber pacemaker pulse generator over the left chest. 2. No pneumothorax
[2025-03-18 13:23] VITALS: BP 131/83; PULSE 98; RESP 20; TEMP 98; O2SAT 96
== END 2025-03-18 13:33 | disposition home or self-care (01) ==
LOC: ER 08:18
DX: I16.0 Hypertensive urgency (principal); E11.9 Type 2 diabetes mellitus without complications; I25.10 Atherosclerotic heart disease of native coronary artery without angina pectoris; Z88.0 Allergy status to penicillin; Z79.899 Other long term (current) drug therapy
CPT/HCPCS: 36415; 71045; 84484; 93005